=== PATIENT | female | born 1970 | race Caucasian/White ===

== ENCOUNTER 2017-03-08 19:39 | Inpatient (IN) | payer MEDICARE, MEDICAID ==
[~2017-03-08] VITALS: Ht 165.1 cm; Wt 145.1 kg
[2017-03-08] MEDS ORDERED: BUSP5TAB2 PO (20:27)
[2017-03-08] MEDS ORDERED: METO25TA35 PO (20:27)
[2017-03-08] MEDS ORDERED: HYDR25TA6 PO (20:28)
[2017-03-08] MEDS ORDERED: AMLO10TA2 PO (20:28)
[2017-03-08] MEDS ORDERED: SUMA25TA3 PO (20:29)
[2017-03-08] MEDS ORDERED: LEVO75TA PO (20:30)
[2017-03-08] MEDS ORDERED: LABETALOL 5MG/ML, 20ML ONE (20:48)
[2017-03-08] MEDS ORDERED: MORPHINE SULFATE 4 MG/ML, 1ML ONE (20:49)
[2017-03-08] MEDS ORDERED: ONDANSETRON 2MG/ML, 2ML ONE (20:49)
[2017-03-08 20:54] LABS: HEMATOCRIT 46.7 % (34.6-47.8); HEMOGLOBIN 15.1 g/dL (11.7-16.4); WHITE BLOOD COUNT 8.4 x10^3/uL (3.4-10)
[2017-03-08] MEDS ORDERED: SODIUM CHLORIDE 0.9% 1,000ML IVBOLUS ONE (21:00)
[2017-03-08] MEDS ORDERED: MORPHINE SULFATE 4 MG/ML, 1ML IVPush PRN (21:00)
[2017-03-08] MEDS ORDERED: LABETALOL 5MG/ML, 20ML IVPush ONE ×2 (21:00→22:30)
[2017-03-08] MEDS ORDERED: ONDANSETRON 2MG/ML, 2ML IVPush ONE (21:00)
[2017-03-08] MEDS ORDERED: VANCOMYCIN PER PHARMACY IV ONE (21:00)
[2017-03-08 21:07] LABS: ASPARTATE AMINO TRANSFERASE 27 U/L (15-37); BLOOD UREA NITROGEN 29 mg/dL (7-18)
[2017-03-08] MEDS ORDERED: CEFTRIAXONE PMX 1GM/50ML 50 ML ONE (21:50)
[2017-03-08] MEDS ORDERED: AZITHROMYCIN 500 MG in SODIUM CHLORIDE 0.9% 250 ML IV ONE (22:00)
[2017-03-08] MEDS ORDERED: CEFTRIAXONE PMX 1GM/50ML 50 ML IV ONE (22:00)
[2017-03-08] MEDS ORDERED: VANCOMYCIN 2,000 MG in SODIUM CHLORIDE 0.9% 500 ML IV ONE (22:30)
[2017-03-08] MEDS ORDERED: ACETAMINOPHEN 325 MG TABLET PO PRN (23:30)
[2017-03-08] MEDS ORDERED: DOCUSATE 100 MG CAPSULE PO PRN (23:30)
[2017-03-08] MEDS ORDERED: DEXTROSE 50%, 50ML SYRINGE IVPush PRN (23:30)
[2017-03-08] MEDS ORDERED: ONDANSETRON ODT 4 MG PO PRN (23:30)
[2017-03-08] MEDS ORDERED: DEXTROSE 4 GM TAB.CHEW PO PRN (23:30)
[2017-03-08] MEDS ORDERED: GLUCAGON 1 MG IM PRN (23:30)
[2017-03-09] VITALS (7 sets, daily range): BP systolic 150–185; BP diastolic 108–143
[2017-03-09] MEDS: HEPARIN 5,000 UNITS/ML, 1ML SQ SCH ×4 (01:00→23:38)
[2017-03-09] MEDS ORDERED: ALBUTEROL SULFATE 2.5 MG/3 ML NPPB PRN (01:00)
[2017-03-09] MEDS: SODIUM CHLORIDE 0.9% 1,000 ML IV SCH ×2 (01:11→11:19)
[2017-03-09 04:53] LABS: HEMATOCRIT 43.8 % (34.6-47.8); HEMOGLOBIN 13.9 g/dL (11.7-16.4); WHITE BLOOD COUNT 7.4 x10^3/uL (3.4-10)
[2017-03-09 05:09] LABS: BLOOD UREA NITROGEN 29 mg/dL (7-18)
[2017-03-09 05:21] LABS: ASPARTATE AMINO TRANSFERASE 20 U/L (15-37)
[2017-03-09] MEDS: METOPROLOL SUCCINATE 50 MG TAB.ER.24H PO SCH (05:55)
[2017-03-09] MEDS ORDERED: LEVOTHYROXINE 150 MCG TABLET PO SCH (06:00)
[2017-03-09] MEDS: INSULIN ASPART 100 UNITS/ML, PEN SQ-INSULIN SCH ×5 (08:00→21:00)
[2017-03-09] MEDS ORDERED: LISINOPRIL 20 MG TABLET PO SCH (09:00)
[2017-03-09] MEDS: HYDROCHLOROTHIAZIDE 25 MG TABLET PO SCH (09:06)
[2017-03-09] MEDS: AMLODIPINE 5 MG TABLET PO SCH (09:06)
[2017-03-09] MEDS: BUSPIRONE 5 MG TABLET PO SCH ×3 (09:06→22:20)
[2017-03-09] MEDS: DOXYCYCLINE 100MG TABLET PO SCH ×2 (09:06→22:19)
[2017-03-09] MEDS: SUMATRIPTAN 25 MG TABLET PO SCH (09:06)
[2017-03-09] MEDS: SODIUM CHLORIDE FLUSH 10ML SYR IVF SCH ×2 (09:07→22:20)
[2017-03-09] MEDS: hydrALAzine 20 MG/ML, 1ML IVPush PRN ×2 (13:49→22:20)
[2017-03-09] MEDS: LABETALOL 5MG/ML, 20ML IVPush PRN (17:02)
[2017-03-10 02:58] VITALS: BP 172/125
[2017-03-10] MEDS: LABETALOL 5MG/ML, 20ML IVPush PRN ×2 (03:04→10:06)
[2017-03-10] MEDS: HYDROcodone/APAP 5/325 TABLET PO PRN (03:04)
[2017-03-10 03:51] VITALS: BP 145/84
[2017-03-10] MEDS: METOPROLOL SUCCINATE 50 MG TAB.ER.24H PO SCH (05:31)
[2017-03-10] MEDS: LEVOTHYROXINE 75 MCG TABLET PO SCH (05:31)
[2017-03-10 07:21] VITALS: BP 169/120
[2017-03-10 07:45] LABS: ASPARTATE AMINO TRANSFERASE 19 U/L (15-37); BLOOD UREA NITROGEN 28 mg/dL (7-18)
[2017-03-10] MEDS: HEPARIN 5,000 UNITS/ML, 1ML SQ SCH ×2 (08:02→15:32)
[2017-03-10] MEDS: AMLODIPINE 5 MG TABLET PO SCH (08:03)
[2017-03-10] MEDS: DOXYCYCLINE 100MG TABLET PO SCH ×2 (08:03→21:46)
[2017-03-10] MEDS: BUSPIRONE 5 MG TABLET PO SCH ×3 (08:03→21:46)
[2017-03-10] MEDS: HYDROCHLOROTHIAZIDE 25 MG TABLET PO SCH (08:03)
[2017-03-10] MEDS: SUMATRIPTAN 25 MG TABLET PO SCH (08:03)
[2017-03-10] MEDS: INSULIN ASPART 100 UNITS/ML, PEN SQ-INSULIN SCH ×4 (08:04→21:46)
[2017-03-10] MEDS: SODIUM CHLORIDE FLUSH 10ML SYR IVF SCH ×2 (08:10→21:46)
[2017-03-10 10:01] VITALS: BP 155/103
[2017-03-10 13:50] VITALS: BP 152/90
[2017-03-10 18:39] VITALS: BP 142/83
[2017-03-11 01:50] VITALS: BP 147/84
[2017-03-11] MEDS: HYDROcodone/APAP 5/325 TABLET PO PRN (04:32)
[2017-03-11] MEDS: LEVOTHYROXINE 75 MCG TABLET PO SCH (05:12)
[2017-03-11] MEDS: METOPROLOL SUCCINATE 50 MG TAB.ER.24H PO SCH (05:12)
[2017-03-11 07:47] LABS: BLOOD UREA NITROGEN 27 mg/dL (7-18)
[2017-03-11] MEDS: SUMATRIPTAN 25 MG TABLET PO SCH (08:22)
[2017-03-11] MEDS: HEPARIN 5,000 UNITS/ML, 1ML SQ SCH ×3 (08:22→15:29)
[2017-03-11] MEDS: SODIUM CHLORIDE FLUSH 10ML SYR IVF SCH (08:23)
[2017-03-11] MEDS: DOXYCYCLINE 100MG TABLET PO SCH (08:23)
[2017-03-11] MEDS: AMLODIPINE 5 MG TABLET PO SCH (08:23)
[2017-03-11] MEDS: INSULIN ASPART 100 UNITS/ML, PEN SQ-INSULIN SCH ×3 (08:23→16:59)
[2017-03-11] MEDS: BUSPIRONE 5 MG TABLET PO SCH ×2 (08:23→16:59)
[2017-03-11] MEDS: HYDROCHLOROTHIAZIDE 25 MG TABLET PO SCH (08:30)
[2017-03-11] MEDS ORDERED: AMLO10TA2 PO (12:40)
[2017-03-11] MEDS ORDERED: METO-93 PO (12:40)
[2017-03-11] MEDS ORDERED: LEVO75TA PO (12:40)
[2017-03-11] MEDS ORDERED: DOXY100T PO (12:40)
[2017-03-11] MEDS ORDERED: HYDR25TA6 PO (12:40)
[2017-03-11] MEDS ORDERED: INSU100I13 INJ (12:42)
== END 2017-03-11 18:36 | disposition home or self-care (01) | DRG 682 ==
LOC: ED 20:42 → EDIP 22:20 → 4WST 03-09 00:48
PROVIDERS: ADMIT Student in an Organized Health Care Education/Training Program; ATTEND Student in an Organized Health Care Education/Training Program
DX: N17.9 Acute kidney failure, unspecified (principal); J96.01 Acute respiratory failure with hypoxia; J18.9 Pneumonia, unspecified organism; R18.8 Other ascites; E11.21 Type 2 diabetes mellitus with diabetic nephropathy; L03.116 Cellulitis of left lower limb; I15.8 Other secondary hypertension; I16.1 Hypertensive emergency; K65.4 Sclerosing mesenteritis; E11.621 Type 2 diabetes mellitus with foot ulcer; N28.1 Cyst of kidney, acquired; E03.9 Hypothyroidism, unspecified; F31.9 Bipolar disorder, unspecified; G47.30 Sleep apnea, unspecified; J45.909 Unspecified asthma, uncomplicated; L97.529 Non-pressure chronic ulcer of other part of left foot with unspecified severity; Z79.4 Long term (current) use of insulin; Z91.14 Patient's other noncompliance with medication regimen; Z91.19 Patient's noncompliance with other medical treatment and regimen; Z99.81 Dependence on supplemental oxygen; E65 Localized adiposity
CPT/HCPCS: 36415; 71010; 76700; 80048; 80053; 81001; 82010; 82040; 82962; 82977; 83036; 83605; 84145; 84443; 85025; 85651; 86141; 87040; 87086; 93005; 96374; 96375; 96376; J0456; J0696; J1644; J1815; J2405; J3370; J0360; J7030; J7040; J7050

== ENCOUNTER 2018-11-07 09:59 | Emergency (ER) | payer MEDICARE, MEDICAID ==
[~2018-11-07] VITALS: Ht 165.1 cm; Wt 86.6 kg
[~2018-11-07 09:59] MED LIST: AMLO10TA8 PO; BUSP5TAB2 PO; CALC0.25 PO; DOXY100T PO; ERGO500017 PO; FURO80TA3 PO; HYDR25TA6 PO; INSU100I13 INJ; LEVO75TA PO; METO-93 PO; METO25TA35 PO; SUMA25TA3 PO
[2018-11-07] MEDS ORDERED: LIDOCAINE-MPF 1%, 5ML ONE (10:46)
[2018-11-07] MEDS ORDERED: SODIUM CHLORIDE FLUSH 10ML SYR IVF ONE (11:00)
[2018-11-07] MEDS ORDERED: LIDOCAINE-MPF 1%, 5ML INFIL ONE (11:00)
--- NOTE | 2018-11-07 11:03 | NUR ---
CT WAITING ON LAB RESULTS TO PERFORM EXAM
[2018-11-07 11:19] LABS: BASOPHILS # (AUTO) 0.04 x10^3/uL (0-0.1); BASOPHILS % (AUTO) 0 % (0-1); EOSINOPHILS % (AUTO) 4 % (1-7); LYMPHOCYTES # (AUTO) 1.78 x10^3/uL (1-3.4); LYMPHOCYTES % (AUTO) 16 % (22-44); MD NO; MEAN CORPUSCULAR HEMOGLOBIN 29.2 pg (27.0-34.8); MEAN CORPUSCULAR HGB CONC 31.6 g/dL (32.4-35.8); MEAN CORPUSCULAR VOLUME 92.6 fL (80-100); MEAN PLATELET VOLUME 7.8 fL (7.4-10.4); MONOCYTES # (AUTO) 0.93 x10^3/uL (0.2-0.8); MONOCYTES % (AUTO) 8 % (2-9); NEUTROPHILS # (AUTO) 8.23 x10^3/uL (1.8-6.8); NEUTROPHILS % (AUTO) 72 % (42-75); PLATELET COUNT 395 x10^3/uL (130-400); RED BLOOD COUNT 3.82 x10^6/uL (3.82-5.3); RED CELL DISTRIBUTION WIDTH 14.9 % (9.6-15.2)
[2018-11-07 11:29] LABS: ALANINE AMINOTRANSFERASE 22 U/L (12-78); ANION GAP 11 mmol/L (5-15); CALCIUM 9.5 mg/dL (8.5-10.1); CHLORIDE 99 mmol/L (98-107); CREATININE 5.27 mg/dL (0.55-1.02)
[2018-11-07 11:31] LABS: ALKALINE PHOSPHATASE 120 U/L (45-117); BILIRUBIN,TOTAL 0.5 mg/dL (0.2-1.0); TOTAL PROTEIN 8.4 g/dL (6.4-8.2)
[2018-11-07] MEDS ORDERED: OMNIPAQUE 350 MG/ML, 100ML BOTTLE ONE (12:10)
--- NOTE | 2018-11-07 12:16 | NUR ---
assumed care of pt while primary rn at lunch. pt back from ct and placed on bp and cont. pulse oximeter.
--- NOTE | 2018-11-07 12:38 | NUR ---
PT REQUESTING PAIN MEDICATIONS. GAVE PT LIDOCAINE GEL
[2018-11-07] MEDS ORDERED: BISACODYL 5 MG EC TABLET ONE (13:43)
[2018-11-07] MEDS ORDERED: MAGNESIUM CITRATE 300ML ORAL SOL ONE (13:43)
[2018-11-07] MEDS ORDERED: DICYCLOMINE 10 MG/ML, 2ML ONE (13:43)
[2018-11-07 13:52] VITALS: BP 145/96
[2018-11-07] MEDS ORDERED: BISACODYL 5 MG EC TABLET PO ONE (14:00)
[2018-11-07] MEDS ORDERED: MAGNESIUM CITRATE 300ML ORAL SOL PO ONE (14:00)
[2018-11-07] MEDS ORDERED: DICYCLOMINE 10 MG/ML, 2ML IM ONE (14:00)
== END 2018-11-07 14:22 | disposition home or self-care (01) ==
LOC: ED 10:34
DX: S91.342A Puncture wound with foreign body, left foot, initial encounter (principal); K59.00 Constipation, unspecified; E11.9 Type 2 diabetes mellitus without complications; J45.909 Unspecified asthma, uncomplicated; I27.20 Pulmonary hypertension, unspecified; X58.XXXA Exposure to other specified factors, initial encounter; Y93.89 Activity, other specified; Y92.89 Other specified places as the place of occurrence of the external cause; Y99.8 Other external cause status
CPT/HCPCS: 10120; 36415; 73630; 74177; 80053; 83690; 85025; 96372; 99284; J0500; Q9967

== ENCOUNTER 2018-11-29 20:22 | Inpatient (IN) | payer MEDICARE, MEDICAID ==
[~2018-11-29] VITALS: Ht 162.6 cm; Wt 95.0 kg
--- NOTE | 2018-11-29 20:50 | NUR ---
pt to room from lobby
--- NOTE | 2018-11-29 21:11 | NUR ---
Assumed care of patient. Patient states, "I have a small bowel obstruction. I have all the normal symptoms." Patient uncooperative with exam and argumentative with staff. C/O ABD and N/V. Patient states last normal BM was today. Will continue to monitor.
[2018-11-29 21:13] LABS: BASOPHILS # (AUTO) 0.05 x10^3/uL (0-0.1); BASOPHILS % (AUTO) 1 % (0-1); EOSINOPHILS # (AUTO) 0.21 x10^3/uL (0-0.4); EOSINOPHILS % (AUTO) 2 % (1-7); LYMPHOCYTES # (AUTO) 1.46 x10^3/uL (1-3.4); LYMPHOCYTES % (AUTO) 16 % (22-44); MD NO; MEAN CORPUSCULAR HEMOGLOBIN 30.5 pg (27.0-34.8); MEAN CORPUSCULAR HGB CONC 33.3 g/dL (32.4-35.8); MEAN CORPUSCULAR VOLUME 91.6 fL (80-100); MEAN PLATELET VOLUME 7.4 fL (7.4-10.4); MONOCYTES # (AUTO) 0.55 x10^3/uL (0.2-0.8); MONOCYTES % (AUTO) 6 % (2-9); NEUTROPHILS # (AUTO) 6.87 x10^3/uL (1.8-6.8); NEUTROPHILS % (AUTO) 75 % (42-75); PLATELET COUNT 372 x10^3/uL (130-400); RED BLOOD COUNT 3.06 x10^6/uL (3.82-5.3); RED CELL DISTRIBUTION WIDTH 16.3 % (9.6-15.2)
[2018-11-29 21:25] LABS: ALANINE AMINOTRANSFERASE 23 U/L (12-78); ALBUMIN 3.5 g/dL (3.4-5.0); ANION GAP 14 mmol/L (5-15); CALCIUM 9.6 mg/dL (8.5-10.1); CHLORIDE 87 mmol/L (98-107); CREATININE 7.34 mg/dL (0.55-1.02)
--- NOTE | 2018-11-29 21:27 | NUR ---
Back from [facility]. RN walked into room to find patient eating a sandwich. Asking for water. RN instructed patient that the primary treatment for a SBO is bowel rest. Patient cooperative with instructions. Patient asked if she could eat when she goes upstairs. RN explains that we do not know if she will be admitted or not. Patient states, "I'll be staying the night." Patient ambulated with a steady gait to the restroom to collect UA.
[2018-11-29 21:28] LABS: ALKALINE PHOSPHATASE 91 U/L (45-117); BILIRUBIN,TOTAL 0.4 mg/dL (0.2-1.0); TOTAL PROTEIN 8.4 g/dL (6.4-8.2)
[2018-11-29] MEDS ORDERED: FUROSEMIDE 40 MG/4 ML ONE (21:49)
[2018-11-29] MEDS ORDERED: CALCIUM CHLORIDE 10%, 10ML SYR ONE (21:49)
[2018-11-29] MEDS ORDERED: PROMETHAZINE 25 MG/ML, 1ML ONE (21:49)
[2018-11-29] MEDS ORDERED: SODIUM BICARB 8.4%, 50ML SYRINGE ONE (21:49)
[2018-11-29] MEDS ORDERED: INSULIN LISPRO 100 UNITS/ML, PEN ONE (21:50)
[2018-11-29 21:52] LABS: MICROSCOPIC AUTO
[2018-11-29 21:54] LABS: CULTURE INDICATED? NO
--- NOTE | 2018-11-29 21:55 | NUR ---
RECEIVED BS REPORT FORM JOHANNA MUHAMMAD TO ASSUME CARE OF PT. MED REQUEST SENT TO PHARMACY. IV WAS PLACED. EKG HAS BEEN COMPLETED AND PRESENTED TO MARNI.
[2018-11-29] MEDS ORDERED: FUROSEMIDE 40 MG/4 ML IVPush ONE (22:00)
[2018-11-29] MEDS ORDERED: INSULIN REGULAR 100 UNITS/ML, 3ML VIAL IVPush ONE (22:00)
[2018-11-29] MEDS ORDERED: ALBUTEROL 0.5%, 20ML NPPB ONE (22:00)
[2018-11-29] MEDS ORDERED: DEXTROSE 50%, 50ML SYRINGE IVPush ONE (22:00)
[2018-11-29] MEDS ORDERED: PROMETHAZINE 25 MG/ML, 1ML IM ONE (22:00)
[2018-11-29] MEDS ORDERED: SODIUM BICARB 8.4%, 50ML SYRINGE IVPush ONE (22:00)
[2018-11-29] MEDS ORDERED: CALCIUM CHLORIDE 10%, 10ML SYR IVPush ONE (22:00)
[2018-11-29] MEDS ORDERED: SODIUM CHLORIDE FLUSH 10ML SYR IVF ONE (22:00)
[2018-11-29] MEDS ORDERED: LABETALOL 5MG/ML, 20ML IVPush ONE (22:00)
--- NOTE | 2018-11-29 22:16 | NUR ---
RECEIVED MEDS FROM PHARMACY. ORQUIDEA HANSON IN TO EVAL PT. FOR ADMISSION. PT. VERY UNCOOPERATIVE WITH ANSWERING QUESTIONS. PT. CONTINUALLY STATES "PEOPLE DON'T KNOW WHAT THEY ARE DOING, I NEED TO EAT SO UNTIL I EAT I'M NOT DOING ANYTHING." PT. DOESN'T ANSWER QUESTIONS DIRECTLY.
[2018-11-29] MEDS ORDERED: METF850T10 PO (22:40)
[2018-11-29] MEDS ORDERED: LISI1TAB7 PO (22:40)
[2018-11-29] MEDS ORDERED: RISP1TAB3 PO (22:40)
[2018-11-29] MEDS ORDERED: INSU100V8 SQ (22:40)
[2018-11-29] MEDS ORDERED: TOPI50TA8 PO (22:40)
[2018-11-29] MEDS ORDERED: LABETALOL 5MG/ML, 20ML IVPush PRN (23:00)
[2018-11-29] MEDS: LABETALOL MC SCH (23:00)
[2018-11-29] MEDS ORDERED: DEXTROSE 50%, 50ML SYRINGE IVPush PRN (23:00)
[2018-11-29] MEDS ORDERED: GLUCAGON 1 MG IM PRN (23:00)
[2018-11-29] MEDS ORDERED: DEXTROSE 4 GM TAB.CHEW PO PRN (23:00)
--- NOTE | 2018-11-29 23:01 | NUR ---
PT. EATING NOW AFTER DIET ORDER ENTERED BY UNParminder HANSON. VS UPDATED. AWAITING BED PLACEMENT UPSTAIRS.
--- NOTE | 2018-11-29 23:28 | NUR ---
REPORT TO JOHANNA DELAROSA. FLOOR READY FOR PT. TRANSPORT.
[2018-11-29] MEDS ORDERED: ERGOCALCIFEROL 50,000 UNIT CAPSULE PO SCH (23:30)
[2018-11-29 23:50] VITALS: BP 204/122
[2018-11-30] VITALS (7 sets, daily range): BP systolic 148–194; BP diastolic 84–124
[2018-11-30] MEDS: hydrALAzine 20 MG/ML, 1ML IVPush PRN ×2 (00:38→22:27)
[2018-11-30] MEDS: DOCUSATE 100 MG CAPSULE PO PRN ×2 (03:13→20:22)
[2018-11-30] MEDS: LABETALOL MC SCH ×4 (05:28→10:00)
[2018-11-30] MEDS: METOPROLOL SUCCINATE 50 MG TAB.ER.24H PO SCH (05:34)
[2018-11-30] MEDS: LEVOTHYROXINE 75 MCG TABLET PO SCH (05:34)
[2018-11-30 06:49] LABS: ANION GAP 15 mmol/L (5-15); CALCIUM 9.7 mg/dL (8.5-10.1); CHLORIDE 86 mmol/L (98-107); CREATININE 7.63 mg/dL (0.55-1.02)
[2018-11-30] MEDS: INSULIN LISPRO 100 UNITS/ML, PEN SQ-INSULIN SCH ×4 (07:00→20:33)
[2018-11-30] MEDS ORDERED: LABETALOL MC SCH (08:00)
[2018-11-30] MEDS: BUSPIRONE 5 MG TABLET PO SCH ×3 (08:51→20:22)
[2018-11-30] MEDS: CALCITRIOL 0.25 MCG CAPSULE PO SCH (08:51)
[2018-11-30] MEDS: TOPIRAMATE 25 MG TABLET PO SCH ×2 (08:51→20:22)
[2018-11-30] MEDS: HYDROCHLOROTHIAZIDE 25 MG TABLET PO SCH (08:52)
[2018-11-30] MEDS: LISINOPRIL 20 MG TABLET PO SCH (08:52)
[2018-11-30] MEDS: SODIUM CHLORIDE FLUSH 10ML SYR IVF SCH ×2 (08:53→20:24)
[2018-11-30] MEDS ORDERED: DARBEPOETIN 100 MCG/ML SQ SCH (10:30)
[2018-11-30] MEDS ORDERED: DARBEPOETIN 60 MCG/ML SQ SCH (10:30)
[2018-11-30] MEDS ORDERED: LABETALOL 5MG/ML, 20ML IVPush PRN (10:30)
[2018-11-30] MEDS: ACETAMINOPHEN 325 MG TABLET PO PRN (20:24)
[2018-12-01 04:03] VITALS: BP 190/113
[2018-12-01] MEDS: ONDANSETRON ODT 4 MG PO PRN ×2 (04:38→16:31)
[2018-12-01] MEDS: hydrALAzine 20 MG/ML, 1ML IVPush PRN ×2 (04:38→19:22)
[2018-12-01 05:58] LABS: BASOPHILS # (AUTO) 0.02 x10^3/uL (0-0.1); BASOPHILS % (AUTO) 0 % (0-1); EOSINOPHILS # (AUTO) 0.12 x10^3/uL (0-0.4); EOSINOPHILS % (AUTO) 2 % (1-7); LYMPHOCYTES # (AUTO) 1.17 x10^3/uL (1-3.4); LYMPHOCYTES % (AUTO) 16 % (22-44); MD NO; MEAN CORPUSCULAR HEMOGLOBIN 31.1 pg (27.0-34.8); MEAN CORPUSCULAR HGB CONC 33.7 g/dL (32.4-35.8); MEAN CORPUSCULAR VOLUME 92.2 fL (80-100); MEAN PLATELET VOLUME 7.9 fL (7.4-10.4); MONOCYTES # (AUTO) 0.63 x10^3/uL (0.2-0.8); MONOCYTES % (AUTO) 8 % (2-9); NEUTROPHILS # (AUTO) 5.59 x10^3/uL (1.8-6.8); NEUTROPHILS % (AUTO) 74 % (42-75); PLATELET COUNT 305 x10^3/uL (130-400); RED BLOOD COUNT 2.66 x10^6/uL (3.82-5.3); RED CELL DISTRIBUTION WIDTH 16.8 % (9.6-15.2)
[2018-12-01 06:07] LABS: ALBUMIN 3.1 g/dL (3.4-5.0); ANION GAP 12 mmol/L (5-15); CALCIUM 9.2 mg/dL (8.5-10.1); CHLORIDE 93 mmol/L (98-107)
[2018-12-01 06:08] LABS: CREATININE 5.57 mg/dL (0.55-1.02)
[2018-12-01] MEDS: METOPROLOL SUCCINATE 50 MG TAB.ER.24H PO SCH (06:15)
[2018-12-01] MEDS: LEVOTHYROXINE 75 MCG TABLET PO SCH (06:16)
[2018-12-01 06:20] VITALS: BP 155/95
[2018-12-01] MEDS: INSULIN LISPRO 100 UNITS/ML, PEN SQ-INSULIN SCH ×4 (07:00→21:15)
[2018-12-01] MEDS: BUSPIRONE 5 MG TABLET PO SCH ×3 (08:49→21:26)
[2018-12-01] MEDS: CALCITRIOL 0.25 MCG CAPSULE PO SCH (08:49)
[2018-12-01] MEDS: TOPIRAMATE 25 MG TABLET PO SCH ×2 (08:49→21:26)
[2018-12-01] MEDS: HYDROCHLOROTHIAZIDE 25 MG TABLET PO SCH (08:50)
[2018-12-01] MEDS: LISINOPRIL 20 MG TABLET PO SCH (08:50)
[2018-12-01] MEDS: SODIUM CHLORIDE FLUSH 10ML SYR IVF SCH ×2 (08:50→21:26)
[2018-12-01] MEDS: FUROSEMIDE 40 MG TABLET PO SCH (11:13)
[2018-12-01] MEDS: MAALOX/HYOSCYAMINE/LIDOCAINE 45 ML BTL PO ONE ×2 (11:27→11:40)
[2018-12-01 12:37] VITALS: BP 155/93
[2018-12-01] MEDS: SEVELAMER CARBONATE 800MG TAB PO SCH ×2 (12:38→18:49)
[2018-12-01 19:17] VITALS: BP 177/101
[2018-12-01] MEDS: ACETAMINOPHEN 325 MG TABLET PO PRN (22:13)
[2018-12-02] MEDS ORDERED: SUMATRIPTAN 25 MG TABLET PO PRN (01:00)
[2018-12-02 01:32] VITALS: BP 169/105
[2018-12-02] MEDS: hydrALAzine 20 MG/ML, 1ML IVPush PRN (01:43)
[2018-12-02 02:42] VITALS: BP 131/82
[2018-12-02 05:35] VITALS: BP 176/103
[2018-12-02] MEDS: METOPROLOL SUCCINATE 50 MG TAB.ER.24H PO SCH (05:37)
[2018-12-02] MEDS: LEVOTHYROXINE 75 MCG TABLET PO SCH (05:37)
[2018-12-02 05:45] LABS: BASOPHILS # (AUTO) 0.04 x10^3/uL (0-0.1); BASOPHILS % (AUTO) 1 % (0-1); EOSINOPHILS # (AUTO) 0.12 x10^3/uL (0-0.4); EOSINOPHILS % (AUTO) 2 % (1-7); LYMPHOCYTES # (AUTO) 1.31 x10^3/uL (1-3.4); LYMPHOCYTES % (AUTO) 20 % (22-44); MD NO; MEAN CORPUSCULAR HEMOGLOBIN 31.1 pg (27.0-34.8); MEAN CORPUSCULAR HGB CONC 33.5 g/dL (32.4-35.8); MONOCYTES # (AUTO) 0.67 x10^3/uL (0.2-0.8); MONOCYTES % (AUTO) 10 % (2-9); NEUTROPHILS # (AUTO) 4.55 x10^3/uL (1.8-6.8); NEUTROPHILS % (AUTO) 68 % (42-75); PLATELET COUNT 343 x10^3/uL (130-400); RED BLOOD COUNT 2.78 x10^6/uL (3.82-5.3); RED CELL DISTRIBUTION WIDTH 17.1 % (9.6-15.2)
[2018-12-02 05:53] LABS: ALBUMIN 3.2 g/dL (3.4-5.0); ANION GAP 7 mmol/L (5-15); CALCIUM 9.4 mg/dL (8.5-10.1); CHLORIDE 95 mmol/L (98-107); CREATININE 4.16 mg/dL (0.55-1.02)
[2018-12-02 06:28] VITALS: BP 164/97
[2018-12-02] MEDS: INSULIN LISPRO 100 UNITS/ML, PEN SQ-INSULIN SCH ×3 (07:00→18:03)
[2018-12-02 07:13] VITALS: BP 177/100
[2018-12-02] MEDS: CALCITRIOL 0.25 MCG CAPSULE PO SCH (09:49)
[2018-12-02] MEDS: LISINOPRIL 20 MG TABLET PO SCH (09:49)
[2018-12-02] MEDS: BUSPIRONE 5 MG TABLET PO SCH ×2 (09:49→18:00)
[2018-12-02] MEDS: FUROSEMIDE 40 MG TABLET PO SCH (09:49)
[2018-12-02] MEDS: TOPIRAMATE 25 MG TABLET PO SCH (09:49)
[2018-12-02] MEDS: SEVELAMER CARBONATE 800MG TAB PO SCH ×3 (09:50→18:00)
[2018-12-02] MEDS: SODIUM CHLORIDE FLUSH 10ML SYR IVF SCH (09:50)
[2018-12-02] MEDS ORDERED: FURO80TA3 PO (13:09)
[2018-12-02] MEDS ORDERED: SEVE800T8 PO (13:09)
== END 2018-12-02 18:26 | disposition home or self-care (01) | DRG 640 ==
LOC: ED 22:49 → EDIP 22:55 → 5SO 23:49 → 4EST 12-01 15:17 → 4WST 12-01 17:56
PROVIDERS: ADMIT Family Medicine; ATTEND Family Medicine
PROC: 5A1D70Z Performance of Urinary Filtration, Intermittent, Less than 6 Hours Per Day (ICD-10-PCS; 2018-11-30)
PROC: 5A1D70Z Performance of Urinary Filtration, Intermittent, Less than 6 Hours Per Day (ICD-10-PCS; 2018-12-01)
PROC: 5A1D70Z Performance of Urinary Filtration, Intermittent, Less than 6 Hours Per Day (ICD-10-PCS; principal; 2018-12-02)
DX: E87.5 Hyperkalemia (principal); N18.6 End stage renal disease; I12.0 Hypertensive chronic kidney disease with stage 5 chronic kidney disease or end stage renal disease; F19.20 Other psychoactive substance dependence, uncomplicated; Z99.2 Dependence on renal dialysis; D64.9 Anemia, unspecified; E03.9 Hypothyroidism, unspecified; E11.22 Type 2 diabetes mellitus with diabetic chronic kidney disease; E66.9 Obesity, unspecified; Z68.35 Body mass index [BMI] 35.0-35.9, adult; E83.39 Other disorders of phosphorus metabolism; E87.1 Hypo-osmolality and hyponatremia; E87.70 Fluid overload, unspecified; F31.9 Bipolar disorder, unspecified; G47.30 Sleep apnea, unspecified; I27.20 Pulmonary hypertension, unspecified; J45.909 Unspecified asthma, uncomplicated; N25.0 Renal osteodystrophy; Z79.4 Long term (current) use of insulin; R10.9 Unspecified abdominal pain
CPT/HCPCS: 36415; 74021; 80048; 80053; 80069; 81001; 82962; 83690; 85025; 86706; 87340; 93005; 96372; 96374; 96375; 99291; G0378; J0881; J1815; J1940; J2550; Q0162; J0360